=== PATIENT | female | born 1985 | race African-American/Black ===

== ENCOUNTER 2017-09-23 18:05 | Emergency (ER) | payer OTHER ==
[~2017-09-23] VITALS: Ht 172.7 cm; Wt 126.3 kg
[2017-09-23] MEDS ORDERED: KETOROLAC TROMETHAMINE 60 MG/2 ML VIAL IM ONE (19:15)
[2017-09-23 22:11] VITALS: BP 177/92
== END 2017-09-23 22:14 | disposition home or self-care (01) ==
LOC: FSED 18:05
DX: N93.8 Other specified abnormal uterine and vaginal bleeding (principal); D25.9 Leiomyoma of uterus, unspecified; D64.9 Anemia, unspecified
CPT/HCPCS: 76817; 81025; 85025; 99283; J1885